=== PATIENT | female | born 1970 | race American Indian/Alaskan Native ===

== ENCOUNTER 2020-01-21 17:30 | Emergency (ER) | payer MEDICARE ==
[2020-01-21 17:59] VITALS: BP 134/87
--- NOTE | 2020-01-21 18:38 | XRay Report ---
CHEST 2 VIEWS INDICATION: productive cough. COMPARISON: None FINDINGS: Support devices: None. Heart: Within normal limits. Lungs: No acute air space or interstitial disease. Pleura: No significant pleural effusion. No pneumothorax. Additional findings: Ventriculoperitoneal shunt catheter present. IMPRESSION: 1. No acute findings. Signer Name: Minor Hargrove MD Signed: 01/21/2020 6:34 PM Workstation Name: [id number]
--- NOTE | 2020-01-21 19:56 | Emergency Department Report ---
- General Chief Complaint: Upper Respiratory Infection Stated Complaint: COUGH Time Seen by Provider: 01/21/20 19:45 Source: patient Mode of arrival: Ambulatory Limitations: No Limitations - History of Present Illness Initial Comments: Patient is a 49-year-old female presents emergency room complaints of a productive cough that began 2 days ago. She states that she has associated yellow mucus production. She denies any fever, nausea, vomiting, diarrhea, shortness of breath, chest pain. She denies any sick contacts or recent travel. She has a past medical history of bronchitis and states that she uses an Advair inhaler and albuterol inhaler, she states that she does have both of those inhalers. She states that she also has a history of a brain surgery and a WEAS[employer] shunt. No allergies to medications, she states that she does have an allergy to latex. She states that she is a smoker. - Related Data Previous Rx's Medication Instructions Recorded Last Taken Type Azithromycin [Zithromax Z-DAVE] 250 mg PO DAILY 5 Days #6 tablet 01/21/20 Unknown Rx Prednisone [predniSONE 10 mg 10 mg PO .TAPER #1 tab.ds.pk 01/21/20 Unknown Rx (6-Day Pack, 21 Tabs)] Allergies Allergy/AdvReac Type Severity Reaction Status Date / Time Latex, Natural Rubber Allergy Rash Verified 01/21/20 17:53 ED Review of Systems ROS: Stated complaint: COUGH Other details as noted in HPI Comment: All other systems reviewed and negative ED Past Medical Hx - Past Medical History Previous Medical History?: Yes Hx Hypertension: Yes Additional medical history: bronchitis - Surgical History Past Surgical History?: Yes Additional Surgical History: shunt to head - Social History Smoking Status: Current Every Day Smoker Substance Use Type: None - Medications Home Medications: Home Medications Medication Instructions Recorded Confirmed Last Taken Type Azithromycin [Zithromax Z-DAVE] 250 mg PO DAILY 5 Days #6 tablet 01/21/20 Unknown Rx Prednisone [predniSONE 10 mg 10 mg PO .TAPER #1 tab.ds.pk 01/21/20 Unknown Rx (6-Day Pack, 21 Tabs)] ED Physical Exam - General Limitations: No Limitations General appearance: alert, in no apparent distress - Head Head exam: Present: atraumatic, normocephalic - Eye Eye exam: Present: normal appearance - ENT ENT exam: Present: mucous membranes moist - Respiratory Respiratory exam: Present: normal lung sounds bilaterally. Absent: respiratory distress, wheezes, rales, rhonchi, stridor, chest wall tenderness, accessory muscle use, decreased breath sounds, prolonged expiratory - Cardiovascular Cardiovascular Exam: Present: regular rate, normal rhythm, normal heart sounds. Absent: systolic murmur, diastolic murmur, rubs, gallop - Neurological Exam Neurological exam: Present: alert, oriented X3 - Psychiatric Psychiatric exam: Present: normal affect, normal mood - Skin Skin exam: Present: warm, dry, intact ED Course Vital Signs 01/21/20 17:57 Temperature 98.1 F Pulse Rate 83 Respiratory 18 Rate Blood Pressure 134/87 O2 Sat by Pulse 99 Oximetry ED Medical Decision Making - Radiology Data Radiology results: report reviewed CHEST 2 VIEWS INDICATION: productive cough. COMPARISON: None FINDINGS: Support devices: None. Heart: Within normal limits. Lungs: No acute air space or interstitial disease. Pleura: No significant pleural effusion. No pneumothorax. Additional findings: Ventriculoperitoneal shunt catheter present. IMPRESSION: 1. No acute findings. Signer Name: Minor Hargrove MD Signed: 01/21/2020 6:34 PM Workstation Name: [id number] Transcribed By: RAMONA Dictated By: Minor Hargrove MD Electronically Authenticated By: Minor Hargrove MD Signed Date/Time: 01/21/201833 DD/ 32 TD/TT: - Medical Decision Making Patient is a 49-year-old female presents emergency room complaints of a productive cough that began 2 days ago. She states that she has associated yellow mucus production. She denies any fever, nausea, vomiting, diarrhea, shortness of breath, chest pain. She denies any sick contacts or recent travel. She has a past medical history of bronchitis and states that she uses an Advair inhaler and albuterol inhaler, she states that she does have both of those inhalers. She states that she also has a history of a brain surgery and a WEASAND TRIMMER shunt. No allergies to medications, she states that she does have an allergy to latex. She states that she is a smoker. Vitals are normal. Breath sounds are clear bilaterally, no wheezing, no rales, no rhonchi, no accessory muscle use, no stridor, no respiratory distress. Chest x-ray:1. No acute findings. Discussed smoking cessation with patient. Patient does not have any known COVID-19 risk factors, no recent travel, no known sick contacts, no fever, no shortness of breath, no vomiting or diarrhea, vitals are normal, normal x-ray. Patient will be treated for bronchitis with steroids and azithromycin. She states that she does not need any refills on her inhalers. advised pt Please rivka e medication as prescribed. Please use your inhalers as needed. Please stop smoking. Please follow-up with your primary care doctor for reexamination. Return to emergency room for any new or worsening symptoms. - Differential Diagnosis PNA, URI, acute bronchitis, COPD, reactive airway, viral syndrome Critical care attestation.: If time is entered above; I have spent that time in minutes in the direct care of this critically ill patient, excluding procedure time. ED Disposition Clinical Impression: Tobacco abuse Acute bronchitis Qualifiers: Bronchitis organism: unspecified organism Qualified Code(s): J20.9 - Acute bro nchitis, unspecified Disposition: DC-01 TO HOME OR SELFCARE Is pt being admited?: No Does the pt Need Aspirin: No Condition: Stable Instructions: How to Stop Smoking (ED), Acute Bronchitis (ED) Additional Instructions: Please take medication as prescribed. Please use your inhalers as needed. Please stop smoking. Please follow-up with your primary care doctor for reexamination. Return to emergency room for any new or worsening symptoms. Prescriptions: Prednisone [predniSONE 10 mg (6-Day Pack, 21 Tabs)] 10 mg PO .TAPER #1 tab.ds.pk Azithromycin [Zithromax Z-DAVE] 250 mg PO DAILY 5 Days #6 tablet Referrals: your, primary care doctor [Other] - 2-3 Days Time of Disposition: 19:55 Print Language: KHMER
== END 2020-01-21 20:05 | disposition home or self-care (01) ==
LOC: ED 17:30
DX: J20.9 Acute bronchitis, unspecified (principal); F19.10 Other psychoactive substance abuse, uncomplicated; I10 Essential (primary) hypertension; F17.200 Nicotine dependence, unspecified, uncomplicated; Z79.899 Other long term (current) drug therapy; Z91.040 Latex allergy status; Z88.8 Allergy status to other drugs, medicaments and biological substances
CPT/HCPCS: 71046; 99283